=== PATIENT | male | born 1975 | race African-American/Black ===

== ENCOUNTER 2020-05-21 12:10 | Emergency (ER) | payer OTHER ==
[2020-05-21 12:27] VITALS: BP 122/71; PULSE 70; TEMP 98.2; BMI 24.3
[2020-05-21] MEDS ORDERED: ASPIRIN 325 MG TABLET PO ONE (12:44)
[2020-05-21] MEDS ORDERED: TICAGRELOR 90 MG TABLET PO STA (12:45)
[2020-05-21] MEDS ORDERED: HEPARIN NA (PORCINE) 5,000 UNITS/ML 1ML VIAL IVPUSH PRN ×2 (12:46)
[2020-05-21] MEDS ORDERED: HEPARIN NA (PORCINE) 5,000 UNITS/ML 1ML VIAL IVPUSH ONE (12:46)
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
[2020-05-21] MEDS ORDERED: TICAGRELOR 90 MG TABLET PO ONE (12:49)
[2020-05-21] MEDS ORDERED: ASPIRIN 325 MG ENTERIC COATED TABLET (FP) ONE (12:49)
[2020-05-21] MEDS ORDERED: HEPARIN NA (PORCINE) 5,000 UNITS/ML 1ML VIAL ONE (12:53)
[2020-05-21] MEDS ORDERED: HEPARIN INFUSION - 25,000 UNITS/500 ML INFUS.BAG IVPB ONE (12:54)
[2020-05-21] MEDS ORDERED: HEPARIN - 25,000 UNIT in SODIUM CHLORIDE 495 ML IV SCH (13:00)
[2020-05-21 13:15] LABS: BASO % 1.9 % (0-2.0); EOS % 0.9 % (0-4.5); HEMATOCRIT 37.9 % (35.4-49); LYMPH % 51.2 % (8-40); MCH 25.4 pg (25.7-33.7); MCHC 31.8 g/dl (32.0-35.9); MEAN PLT VOLUME 7.2 fl (7.5-11.1); PLATELET COUNT 248 K/MM3 (134-434); RBC 4.74 M/mm3 (4.00-5.60); WHITE BLOOD COUNT 2.7 K/mm3 (4.0-10.0)
[2020-05-21 13:26] LABS: INR 1.03 (0.83-1.09); PROTHROMBIN TIME (PATIENT) 12.1 SEC (9.7-13.0)
[2020-05-21 13:29] LABS: ACTIVATED PTT 26.9 SECONDS (25.2-36.5)
[2020-05-21 13:43] LABS: ALBUMIN 3.5 g/dl (3.4-5.0); ALK PHOS 150 U/L (45-117); ANION GAP 8 MMOL/L (8-16); BILIRUBIN,TOTAL 0.2 mg/dL (0.2-1); BLOOD UREA NITROGEN 9.4 mg/dL (7-18); CALCIUM 8.5 mg/dL (8.5-10.1); CHLORIDE 107 mmol/L (98-107); CO2 30 mmol/L (21-32); CREATININE 1.1 mg/dL (0.55-1.3); GLUCOSE,RANDOM 133 mg/dL (74-106); POTASSIUM 4.8 mmol/L (3.5-5.1); SGOT/AST 120 U/L (15-37); SGPT/ALT 73 U/L (13-61); SODIUM 145 mmol/L (136-145); TOT PROT 6.7 g/dl (6.4-8.2)
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
--- NOTE | 2020-05-21 16:20 | EKG ---
Test Reason : Blood Pressure : / mmHG Vent. Rate : 073 BPM Atrial Rate : 073 BPM P-R Int : 186 ms QRS Dur : 092 ms QT Int : 394 ms P-R-T Axes : 063 079 067 degrees QTc Int : 434 ms NORMAL SINUS RHYTHM ST ELEVATION, CONSIDER EARLY REPOLARIZATION, PERICARDITIS, OR INJURY ABNORMAL ECG WHEN COMPARED WITH ECG OF 21-MAY-2020 10:11, NO SIGNIFICANT CHANGE WAS FOUND Confirmed by TONY LO MD ([id number]) on 05/21/2020 4:19:30 PM Referred By: Confirmed By:TONY LO MD
== END 2020-05-21 14:23 | disposition short-term general hospital (02) ==
LOC: JER 12:10
PROC: 3E033GC Introduction of Other Therapeutic Substance into Peripheral Vein, Percutaneous Approach (ICD-10-PCS; principal; 2020-05-21)
DX: I21.3 ST elevation (STEMI) myocardial infarction of unspecified site (principal)
CPT/HCPCS: 36415; 80053; 82550; 82553; 84484; 85025; 85027; 85610; 85730; 86780; 93005; 93010; 99285-25; J1644; U0003